=== PATIENT | male | born 1950 | race Caucasian/White ===

== ENCOUNTER → 2016-11-15 | Day surgery (SDC) | payer OTHER ==
[~2016-11-15] MED LIST: DEXAMETHASONE 4 MG/ML VIAL ONE; EPINEPHrine 30 MG/30 ML MDV ONE; LIDO/BUPIVA 10ML SYR IU ONE; LIDO/BUPIVA/morphINE 15ML SYR IU ONE; LIDOCAINE 2% 5 ML SDV ONE; PROPOFOL/EMULSION 500 MG/50 ML BOTTLE IV ONE; ROPIVACAINE HCL 150 MG/30 ML INJ ONE; SKIN ADHESIVE (DERMABOND) 1 EACH TP ONE; ceFAZolin 1 GM VIAL ONE; ceFAZolin 3 GM in D5W 100 ML IV ONE; fentaNYL 100 MCG/2 ML INJ ONE
== END | disposition home or self-care (01) ==
LOC: FSGY 07:54
PROVIDERS: ATTEND Orthopaedic Surgery Sports Medicine
DX: Z53.09 Procedure and treatment not carried out because of other contraindication (principal); J40 Bronchitis, not specified as acute or chronic; M75.102 Unspecified rotator cuff tear or rupture of left shoulder, not specified as traumatic; M75.52 Bursitis of left shoulder; I10 Essential (primary) hypertension; K21.9 Gastro-esophageal reflux disease without esophagitis; Z85.46 Personal history of malignant neoplasm of prostate
CPT/HCPCS: J0690; J1100; J2274; J2704; J2795; J3010

== ENCOUNTER → 2017-03-27 | Outpatient (CLI) | payer OTHER ==
[~2017-03-27] MED LIST changes: -DEXAMETHASONE 4 MG/ML VIAL ONE; -EPINEPHrine 30 MG/30 ML MDV ONE; +IOPAMIDOL (ISOVUE-300) 100 ML BTL ONE; -LIDO/BUPIVA 10ML SYR IU ONE; -LIDO/BUPIVA/morphINE 15ML SYR IU ONE; -LIDOCAINE 2% 5 ML SDV ONE; -PROPOFOL/EMULSION 500 MG/50 ML BOTTLE IV ONE; -ROPIVACAINE HCL 150 MG/30 ML INJ ONE; -SKIN ADHESIVE (DERMABOND) 1 EACH TP ONE; -ceFAZolin 1 GM VIAL ONE; -ceFAZolin 3 GM in D5W 100 ML IV ONE; -fentaNYL 100 MCG/2 ML INJ ONE
== END ==
LOC: CIMAGING 09:20
PROVIDERS: ATTEND Family Medicine
DX: R10.31 Right lower quadrant pain (principal); K76.0 Fatty (change of) liver, not elsewhere classified; K80.20 Calculus of gallbladder without cholecystitis without obstruction; K57.30 Diverticulosis of large intestine without perforation or abscess without bleeding; I25.83 Coronary atherosclerosis due to lipid rich plaque; K22.8 Other specified diseases of esophagus
CPT/HCPCS: 71260-PO; 74177-PO; Q9967